=== PATIENT | female | born 1955 | race Two or more races ===

== ENCOUNTER 2018-05-19 19:04 | Emergency (ER) | payer SELFPAY ==
[~2018-05-19] VITALS: Ht 165.1 cm; Wt 54.4 kg
[2018-05-19] MEDS ORDERED: VANCOMYCIN PER PHARMACY 1,000 MG IV SCH (20:00)
[2018-05-19] MEDS ORDERED: SODIUM CHLORIDE 0.9% 1,650 ML IV ONE (20:00)
[2018-05-19 20:09] LABS: Hemoglobin 11.6 g/dL (12.2-16.2)
[2018-05-19 20:11] LABS: Mean Corpuscular Hemoglobin 23.4 pg (28.0-32.0); Mean Corpuscular Hgb Conc. 26.9 g/dL (32.0-36.0); Mean Corpuscular Volume 87.1 fL (80.0-100.0); Platelet Count (auto) 634 10^3/uL (140-450); Red Blood Cells 4.94 10^6/uL (4.0-5.20); Red Cell Distribution Width 16.4 % (11.8-14.3)
[2018-05-19] MEDS ORDERED: PIPERACILLIN-TAZOB 3.375GM 100 ML IV SCH (20:12)
[2018-05-19] MEDS ORDERED: SODIUM BICARBONATE 8.4 % INJ 50ML VIAL IV ONE ×2 (20:15→21:12)
[2018-05-19] MEDS ORDERED: InsuLIN REG 1unit/0.01ml Soln (100units/ml) IV ONE (20:15)
[2018-05-19] MEDS ORDERED: LIDOCAINE W/ EPINEPHRINE 1% 20ML VIAL SC ONE (20:15)
[2018-05-19] MEDS ORDERED: VANCOMYCIN 1GM/250ML 250 ML IV ONE (20:15)
[2018-05-19] MEDS ORDERED: BACITRACIN TOP OINT 1 UD PKG TOP ONE (20:15)
[2018-05-19 20:20] LABS: Albumin 1.8 g/dL (3.4-5.0); Anion Gap 36 (5-15); Blood Alcohol < 3.0 mg/dL (0-5); Blood Urea Nitrogen 40 mg/dL (7-18); Calcium 9.3 mg/dL (8.5-10.1); Chloride 78 mmol/L (98-107); Magnesium 2.8 mg/dL (1.6-2.6)
[2018-05-19 20:22] LABS: INR 1.26 (0.9-1.15); Partial Thromboplastin Time 46.2 sec (23.78-33.04); Prothrombin Time 13.3 sec (9.27-12.13)
[2018-05-19 20:29] LABS: Alanine Aminotransferase 12 U/L (13-56); Alkaline Phosphatase 455 U/L (45-117); Aspartate Aminotransferase 19 U/L (15-37); BUN/Creatinine Ratio 20.5; Bilirubin, Total 0.5 mg/dL (0.2-1.0); GFR African American 34 mL/min; GFR Non-African American 28 mL/min; Total Protein 7.4 g/dL (6.4-8.2)
[2018-05-19 20:33] LABS: Lactic Acid w/Reflex 3.6 mmol/L (0.4-2.0)
[2018-05-19] MEDS ORDERED: ETOMIDATE (2MG/ML) 20ML VIAL IV ONE ×2 (20:36→23:00)
[2018-05-19] MEDS ORDERED: SUCCINYLCHOLINE CHLORIDE 20 MG/ML 10ML VIAL IV ONE ×2 (20:36→23:00)
[2018-05-19 20:37] LABS: White Blood Cell 73.8 10^3/uL (4.4-10.8)
[2018-05-19 20:38] LABS: Basophils % (manual) 0 (0.0-2.0); Blast Cells 0; Eosinophils % (manual) 0 (0-7); Myelocytes % 0; Promyelocytes % 0
[2018-05-19] MEDS ORDERED: SODIUM BICARBONATE 50ML VIAL 50 ML in SOD CHL 0.45% 1,000 ML IV ONE (20:45)
[2018-05-19] MEDS ORDERED: SODIUM CHL 3% 500 ML IV ONE (20:45)
[2018-05-19 20:47] LABS: Carbon Dioxide 5 mmol/L (21-32); Potassium 2.2 mmol/L (3.5-5.1)
[2018-05-19 20:48] LABS: Glucose 981 mg/dL (74-106)
[2018-05-19 20:49] LABS: Sodium 119 mmol/L (136-145)
[2018-05-19 21:00] VITALS: BP 99/53
[2018-05-19 21:01] VITALS: BP 113/59
[2018-05-19 21:02] LABS: Alcohol, Urine < 3.0 mg/dL (0-5); Amphetamine Screen, Urine NEGATIVE (NEGATIVE); Barbiturate Scree,Urine NEGATIVE (NEGATIVE); Benzodiazephine Screen, Urine NEGATIVE (NEGATIVE); Cannabinoid Screen, Urine NEGATIVE (NEGATIVE); Cocaine Screen, Urine NEGATIVE (NEGATIVE); Opiate Scree,Urine POSITIVE (NEGATIVE); Phencyclidine Screen, Urine NEGATIVE (NEGATIVE)
[2018-05-19] MEDS ORDERED: MIDAZOLAM DRIP 50 mg/50mL 50 ML IV ONE (21:10)
[2018-05-19 21:15] LABS: Urine Amorphous Crystal FEW /hpf (None Seen); Urine Bacteria FEW /hpf (None Seen); Urine Blood 1+ /uL (Negative); Urine Mucus FEW (None Seen); Urine Specific Gravity 1.016 (1.001-1.035); Urine WBC 1 /hpf (0 - 5)
[2018-05-19 21:31] LABS: Band Neutrophils % (manual) 42; Lymphocytes % (manual) 2 (10.0-50.0); Metamyelocytes % 2; Monocytes % (manual) 1 (0-12)
[2018-05-19] MEDS ORDERED: InsuLIN R (HUMAN) 100 UNITS in SODIUM CHL 0.9% 99 ML IV SCH ×2 (21:31→23:58)
[2018-05-19 21:36] LABS: Reactive Lymphocytes 1
[2018-05-19] MEDS ORDERED: NOREPINEPHRINE 8 MG/250ML KIT 250 ML IV ONE (21:42)
[2018-05-19] MEDS ORDERED: DEXTROSE (50%) 50ML SYRG IV PRN (21:45)
--- NOTE | 2018-05-19 21:46 | NUR ---
Respiratory note: ETT ADVANCED TO 26CM AT THE LIP DUE TO POST CXR RESULTS. RN KATE LEE AT BEDSIDE AND AWARE OF CHANGE.
[2018-05-19] MEDS: POTASSIUM CHL 20MEQ/100ML 100 ML IV SCH ×2 (21:55→23:52)
[2018-05-19] MEDS: PIPERACILLIN-TAZOB 3.375GM 100 ML IV SCH (22:00)
[2018-05-19] MEDS: ACCU-CHEK COMFORT CURVE STRIP VI SCH ×2 (22:35→23:56)
--- NOTE | 2018-05-19 22:38 | NUR ---
Respiratory note: AT BEDSIDE FOR ROUTINE VENT CHECK NO CHANGES MADE AT THIS TIME. DONE WILL CONTINUE TO MONITOR.
[2018-05-19 22:45] LABS: Lactic Acid w/Reflex 3.1 mmol/L (0.4-2.0)
[2018-05-19 22:48] VITALS: BP 110/63
[2018-05-19] MEDS: MIDAZOLAM DRIP 50 mg/50mL 50 ML IV SCH (22:49)
[2018-05-19] MEDS ORDERED: NOREPINEPHRINE 8 MG/250ML KIT 250 ML IV SCH (22:49)
[2018-05-19 23:59] LABS: Fibrinogen 555.1 mg/dL (177-375)
[2018-05-20] VITALS (7 sets, daily range): BP systolic 65–106; BP diastolic 47–57
--- NOTE | 2018-05-20 | NUR ---
Respiratory note: ROUTINE VENT CHECK DONE AT THIS TIME. FIO2 TITRATED VIA VENT TO 30% LILIAM LOVE MADE AWARE OF CHANGE.
[2018-05-20] MEDS ORDERED: InsuLIN R (HUMAN) 100 UNITS in SODIUM CHL 0.9% 99 ML IV SCH ×7 (00:19→03:54)
[2018-05-20] MEDS: SODIUM CHLORIDE 0.9% 1,000 ML IV SCH ×2 (00:19→02:19)
[2018-05-20] MEDS ORDERED: MORPHINE SULFATE 4 MG/ML SYR/VIAL IV PRN (00:30)
[2018-05-20] MEDS ORDERED: NITROGLYCERIN 0.4 MG SL TAB SL PRN (00:30)
[2018-05-20] MEDS ORDERED: DEXTROSE (50%) 50ML SYRG IV PRN (00:30)
[2018-05-20] MEDS ORDERED: SODIUM CHL 3% 500 ML IV ONE (00:30)
[2018-05-20] MEDS ORDERED: PANTOPRAZOLE 40 MG/10 ML VIAL IV ONE (00:30)
[2018-05-20] MEDS ORDERED: ONDANSETRON HCL 4 MG/2 ML VIAL IV PRN (00:30)
[2018-05-20] MEDS ORDERED: ACCU-CHEK COMFORT CURVE STRIP VI SCH ×2 (01:30→04:30)
[2018-05-20] MEDS: ACCU-CHEK COMFORT CURVE STRIP VI SCH ×7 (01:45→10:40)
[2018-05-20 02:10] LABS: Albumin 1.4 g/dL (3.4-5.0); BUN/Creatinine Ratio 17.2; Calcium 8.4 mg/dL (8.5-10.1)
[2018-05-20 02:13] LABS: Bilirubin, Total 0.4 mg/dL (0.2-1.0); Total Protein 6.3 g/dL (6.4-8.2)
[2018-05-20 02:17] LABS: Lactic Acid w/Reflex 5.5 mmol/L (0.4-2.0)
[2018-05-20] MEDS: MIDAZOLAM DRIP 50 mg/50mL 50 ML IV SCH (03:18)
[2018-05-20] MEDS: POTASSIUM CHL 20MEQ/100ML 100 ML IV SCH ×2 (03:23→05:00)
[2018-05-20] MEDS: PIPERACILLIN-TAZOB 3.375GM 100 ML IV SCH ×3 (04:00→10:35)
[2018-05-20 07:57] LABS: Calcium 8.3 mg/dL (8.5-10.1)
[2018-05-20 08:01] LABS: BUN/Creatinine Ratio 16.9
[2018-05-20] MEDS ORDERED: PANTOPRAZOLE 40 MG/10 ML VIAL IV SCH (10:00)
[2018-05-20] MEDS ORDERED: SODIUM CHLORIDE 0.9% 1,000 ML IV ONE (10:45)
[2018-05-20] MEDS ORDERED: ACETAMINOPHEN 650 MG RECT SUPP PR ONE (11:00)
[2018-05-20] MEDS ORDERED: PHENYLEPHRINE INJ 20 MG in D5W 5% 248 ML IV ONE (12:30)
== END 2018-05-20 12:20 | disposition short-term general hospital (02) ==
LOC: ER 19:35
DX: A41.9 Sepsis, unspecified organism (principal); E11.11 Type 2 diabetes mellitus with ketoacidosis with coma; E87.6 Hypokalemia; E87.1 Hypo-osmolality and hyponatremia; T68.XXXA Hypothermia, initial encounter; R56.9 Unspecified convulsions; N28.9 Disorder of kidney and ureter, unspecified; X58.XXXA Exposure to other specified factors, initial encounter
CPT/HCPCS: 31500; 36415; 36556; 36600; 51702; 71045; 71250; 73700; 74176; 80048; 80053; 80202; 80307; 80320; 81001; 82553; 82805; 82962; 83605; 83735; 83930; 84484; 85007; 85027; 85379; 85384; 85610; 85730; 86850; 86900; 86901; 87040; 87070; 87077; 87086; 87088; 87186; 87205; 96361; 96365; 96366; 96368; 96375; 99291; C9113; J0330; J1815; J2250; J2543; J3370; J3480; 94002; 94003; J7060